=== PATIENT | male | born 2000 | race Caucasian/White ===

== ENCOUNTER 2024-05-22 15:01 | Emergency (ER) | payer OTHER, SELFPAY ==
[2024-05-22 15:11] VITALS: BP 137/74; PULSE 70; RESP 17; TEMP 36.8; O2SAT 98; BMI 28.7
[2024-05-22] MEDS: lidocaine-epi 2% 20 mL INJ INJECTION (15:46)
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
[2024-05-22 16:07] VITALS: BP 120/69; PULSE 83; RESP 14; O2SAT 96
== END 2024-05-22 16:05 | disposition home or self-care (01) ==
PROVIDERS: Emergency Provider Physician Assistant
DX: S61.512A Laceration without foreign body of left wrist, initial encounter (principal); W20.8XXA Other cause of strike by thrown, projected or falling object, initial encounter
CPT/HCPCS: 12002; 99283

== ENCOUNTER 2025-03-17 01:18 | Emergency (ER) | payer OTHER, SELFPAY ==
[2025-03-17 01:20] VITALS: BP 144/89; PULSE 83; RESP 16; TEMP 35.8; O2SAT 98; BMI 28.7
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
--- NOTE | 2025-03-17 01:43 | XRR_ITS ---
PROCEDURE INFORMATION: Exam: XR Left Shoulder Exam date and time: 03/17/2025 1:47 AM Age: 24 years old Clinical indication: Injury or trauma; Fall; Blunt trauma (contusions or hematomas); Shoulder; Left TECHNIQUE: Imaging protocol: Radiologic exam of the left shoulder. Views: 2 or more views. COMPARISON: No relevant prior studies available. FINDINGS: Bones/joints: Normal. Soft tissues: Normal. XR/XR shoulder LT min 2V* [id number] IMPRESSION: No acute findings.
[2025-03-17 02:18] VITALS: RESP 18
[2025-03-17] MEDS: morphine 4 mg/mL SDV 1 mL IVP (02:18)
[2025-03-17 02:22] VITALS: BP 141/84; PULSE 61; RESP 18; O2SAT 97
--- NOTE | 2025-03-17 03:14 | W.ED.EXTPRO ---
HPI - Extremity Problem General: Chief complaint: Extremity Injury, Upper Stated complaint: Left Shoulder\Collar Bone Time Seen by Provider: 03/17/25 01:23 History of Present Illness: Patient presents with left shoulder pain after falling off a cooler on the back of a [place] vehicle. The patient is right-handed and reports inability to move the left shoulder, though can move the hand. There is no history of recent alcohol use at the time of injury. The patient describes the pain as significant, with the most pain localized over the AC joint area. The patient has a prior history of elbow fracture but denies current elbow involvement. No obvious deformity is noted by the provider, but there is a palpable lump over the AC joint. The patient denies prior similar shoulder injuries but reports a history of elbow fracture. 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 No other symptoms or injuries are reported. Related Data Previous Rx's ?Medication ?Instructions ?Recorded prednisone 20 mg tablet 20 mg PO DAILY #5 tabs 02/10/24 oxycodone-acetaminophen 5 mg-325 1 tab PO TID PRN pain #20 tabs 03/17/25 mg tablet (Percocet) Allergies Allergy/AdvReac Type Severity Reaction Status Date / Time No Known Allergies Allergy Verified 03/17/25 01:33 [facility] ED PFSH: Medical History Contact dermatitis due to poison florina Physical Exam Const: COMMON NORMALS: no acute distress, patient oriented x3 and alert HENMT: COMMON NORMALS: normocephalic and atraumatic HEAD & SCALP: normocephalic and atraumatic Eye: COMMON NORMALS: Equal, round and reactive pupils present, EOMs intact bilaterally and no scleral icterus PUPIL: Yes Equal, round and reactive pupils present Resp: COMMON NORMALS: normal respiratory effort and No retractions Cardio: COMMON NORMALS: regular rate, regular rhythm and No murmurs present (Cardio) RATE: regular rate RHYTHM: regular rhythm GI: COMMON NORMALS: Normal to inspection, nondistended, normoactive bowel sounds present, Soft to palpation and non-tender PALPATION: Yes Soft to palpation Extremity: NARRATIVE EXTREMITY EXAM: Left shoulder: Prominence of bones at the AC joint. Glenohumeral joint appears intact. No obvious deformity of the humerus. Pain with passive abduction beyond 10 degrees and forward flexion beyond 15 degrees mainly at the A/C joint. Neuro: COMMON NORMALS: patient oriented x3 SENSORIUM/ORIENTATION: Yes alert Skin: COMMON NORMALS: no rashes or lesions noted GENERAL SKIN EXAM: no rashes or lesions noted Course Vital Signs: Vital signs: Vital Signs Temperature 96.4 F L 03/17/25 01:20 Pulse Rate 61 03/17/25 02:22 Respiratory Rate 18 03/17/25 02:22 Blood Pressure 141/84 03/17/25 02:22 Pulse Oximetry 97 03/17/25 02:22 Oxygen Delivery Me thod Room Air 03/17/25 01:20 MDM - Extremity (Nontraumatic) Medical Decision Making In summary, patient is a well-appearing 24-year-old male with left shoulder pain subsequent to falling on it. The radiology reads x-ray of the shoulder to be without acute injury, I think that I can appreciate AC joint separation which comports with the clinical exam. He will be placed in a sling and given a short course of pain medication and follow-up to orthopedics. He shows good understanding and agrees to the plan Lab Data Radiology Impressions Shoulder X-Ray 03/17/25 01:43 IMPRESSION: No acute findings. All radiology interpretation(s) finalized by discharge Discharge Plan Discharge Patient Disposition: Home Clinical Impression: AC separation Condition: Stable Prescriptions: New oxycodone-acetaminophen [Percocet] 5-325 mg tablet 1 tab PO TID PRN (Reason: pain) Qty: 20 0RF No Action prednisone 20 mg tablet 20 mg PO DAILY Qty: 5 0RF Discharge Orders: Discharge ED (Routine); Ordered 03/17/25 Ordered By: Naeem Og Discharge Diet: Usual diet Discharge Activity: Increase activity as tolerated Patient Instructions: Acromioclavicular Separation (ED), Patient Portal & Eliz Instructions Stand Alone Forms: Work/School Release Print Language: Albanian Coding Level of Care Code ED Renewals Manager for Brenna Isbell
--- NOTE | 2025-03-17 07:28 | DCPLANNER ---
messaged ortho for er f/u
== END 2025-03-17 02:25 | disposition home or self-care (01) ==
PROVIDERS: Emergency Provider Student in an Organized Health Care Education/Training Program
DX: S43.102A Unspecified dislocation of left acromioclavicular joint, initial encounter (principal); W17.89XA Other fall from one level to another, initial encounter
CPT/HCPCS: 73030; 96374; 99284; J2270